=== PATIENT | male | born 1990 | race Caucasian/White ===

== ENCOUNTER 2019-03-18 20:46 | Emergency (ER) | payer BC ==
[2019-03-18] MEDS ORDERED: CEPHALEXIN 500 MG CAPSULE PO STA (21:01)
[2019-03-18] MEDS ORDERED: Diph,Pert(Acell),Tet Vac 0.5 ML SYR IM ONE (21:01)
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
== END 2019-03-18 21:19 | disposition home or self-care (01) ==
LOC: ER 20:46
DX: S01.81XA Laceration without foreign body of other part of head, initial encounter (principal); W26.0XXA Contact with knife, initial encounter; Y92.89 Other specified places as the place of occurrence of the external cause
CPT/HCPCS: 12001; 90715; 96372; 99283; 99284